=== PATIENT | female | born 2000 | race Hispanic/Latino ===

== ENCOUNTER 2020-05-24 09:00 | Outpatient (RCR) | payer OTHER, SELFPAY ==
--- NOTE | 2020-05-24 09:00 | BH.COMM ---
Communication Note - Communication with Client Communication Note: Met with pt to completed initial paperwork. No significant changes since pre-admission screeing. Completed [facility] Scre[facility]. Pt reports significant hx of suicidal ideations with thoughts about methods, however last thought occured over a week ago. Denies any active SI, plan, or intent. Protective factors.
--- NOTE | 2020-05-24 09:00 | BH.SGPN.GN ---
Behaviors/Verbalizations/Mental Status: []Client alert and oriented, casually dressed. Eye contact poor. Motor activity appropriate. Speech within normal limits. Affect flat, mood anxious. Thoughts linear, logical, no signs of hallucinations or delusions. Reviewed client?s symptom tracker, no risk or plan for suicide ideation, plan, or intent as of 05/24/20. Client Response/Progress/Benefit: []Client listened to others share and head nodded in agreement with other group members throughout discussion. Appeared to be anxious due to client?s first day of IOP program. Declined to share for session, but appeared to be listening to peers. Client will continue IOP to prevent decompensation, learn and practice healthy coping skills, and decrease anxiety symptoms. Narrative Note: []
--- NOTE | 2020-05-24 10:05 | BH.SGPN.GN ---
Behaviors/Verbalizations/Mental Status: []Client alert and oriented, casually dressed and groomed. Eye contact fair. Motor activity appropriate. Speech within normal limits. Affect constricted, mood dysthymic and anxious. Thoughts linear, logical, no signs of hallucinations or delusions. Client Response/Progress/Benefit: []Client mostly passive participant AEB limited contributions during discussion, however did appear attentively listen to peers. Pt chose to not participate in activity, but appeared to listen to information. Pt's first day in group. Group reported even though change can be scary, change can be positive. Listened as group discussed how change can lead to improved mental health and relationships. Client worked with the group to identify barriers to making change, which included: fear of failure, uncomfortable emotions, and putting others first. Client participated in the activity where they identified and discussed the emotions related to change. Benefited from increased awareness and understanding of emotions, benefits, and barriers related to change. Will continue IOP tx as client can benefit from reducing depressed symptoms, increasing healthy coping skills, and preventing decompensation.
--- NOTE | 2020-05-24 11:05 | BH.SGPN.GN ---
Behaviors/Verbalizations/Mental Status: []Client alert and oriented, neatly dressed and groomed. Eye contact good. Motor activity appropriate. Speech within normal limits. Affect constricted, mood anxious and dysthymic. Thoughts linear, logical, no signs of hallucinations or delusions. Client Response/Progress/Benefit: []Client responded well to session AEB taking notes and listening attentively to others. Client listened during psychoeducation on the change process and different emotions in each stage of change. Client also contributed during the activity. Client identified a change client would like to make to improve mental health which was to ?reach out to one friend.? Client declined to share with the group which stage she was in, but she appeared to be engaged during group discussion on using a decisional balance tool to promote change. Appeared to benefit from identifying what stage of change client is in and creating a small goal. First day of IOP tx. Will continue IOP tx to prevent decompensation, improve mood stability, and learn healthy coping skills. Narrative Note: []
--- NOTE | 2020-05-29 12:35 | PCM.BH.PSYEV ---
Psychiatric Evaluation - Initial Evaluation Initial Evaluation: History of Present Illness: [] The patient is a 19-year-old single female with a history of depression and social anxiety disorder who is referred by her psychiatric nurse practitioner due to increased depression and fleeting suicidal ideation for the past 1 to 2 months which has increased in severity in recent weeks. 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 She currently lives with her parents and her 18-year-old sister. Patient was suicidal in the past few weeks and admitted to writing a goodbye letter and researching methods of suicide. She admits that she had fleeting suicidal ideation but today says that she has not had any suicidal ideation whatsoever since 2 weeks ago. She has not had passive thoughts since 2 weeks ago either. She also states that she has had no urges to engage in self-harm by cutting since 2 weeks ago. She has been cutting off-and-on since age 14 and the most recent episode of cutting according to the patient was in December 2019. Stitches were required for her cutting in December 2019 but she was not admitted to the hospital and was not suicidal. She denies any self-harm since then. The patient is able to function at work but only can concentrate for short periods of time. For primary support she has some close friends. Her her biggest stress right now she states is financial. She is reluctant to discuss the fact that she enjoys riding horses and has ridden since she was 5 years old but has recently been told she cannot go back and ride her horse at her current horse barn until she gets treatment. The patient states that her racehorse trainer told her this she thinks just because they watched her struggle with depression and anxiety in the past few years really. The patient denies that any incident happened that triggered this situation where she is unable to ride until she gets treatment. The patient states that she will be able to go back on July 11 to ride horses again with her same racehorse trainer and she has been updating her racehorse trainer on her treatment. She endorses also using caffeine when she is at work at [employer] she'll have up to 4 shots of espresso daily but has no caffeine use when she is not working. She endorses feeling very down and sad and crying. She has endorses feeling hopeless and worthless and isolating. 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 Her appetite is normal and she been sleeping 6 to 9 h a night. Her energy level is low during the day and she denies feeling any guilt. She has no access to guns or any other weapons. She denies active suicidal or homicidal ideation. She denies hallucinations, delusions or symptoms of jayla ever. The patient is a worrier by nature and has always worried but she feels that her anxiety is not much worse now than it usually is. She had 1 panic attack about 4 years ago and none since. She denies OCD, eating disorders, trauma and and PTSD. Denies head trauma and seizure. The patient states that she was recently diagnosed by her therapist of 1 month with borderline personality disorder. Current Psychiatric Medications: [] Lexapro 10 mg p.o. daily (for 10 days only). Past Psychiatric History: [] Patient has no psych admissions. No suicide attempts. She currently has a nurse practitioner and a counselor who she was seeing weekly. Her therapist diagnosed her with borderline personality disorder about 2 to 3 weeks ago. She first took medications for depression and anxiety at age 16. She was first depressed at age 14. She began cutting at age 14 and has been cutting off and on for 5 years. She uses a razor blade and cuts her self on her thighs. She did need stitches for her cutting that she did in December 2019. She was not admitted at that time and was not suicidal. Past medications include Zoloft which helped, Prozac which made her more suicidal. First counseling was at age 15 and she did not find it helpful. Substance Use History: [] Non-smoker. No alcohol use. No drug use and no marijuana use. Allergies: [] No known allergies Medications: [] Lisinopril for polycystic kidney disease. Vitamin D and a few other vitamins and an allergy pill as needed Past Medical History: [] Polycystic kidney disease, scoliosis, low iron. She has not had any surgeries. She is a 0 para 0 female who has regular menstrual periods and has not been sexually active ever. Family Psychiatric History: [] Mother is 49 years old and father is 52 years old and they're both fairly healthy. She has a maternal aunts and a maternal grandmother with depression. She has a maternal grandfather who is an alcoholic and a paternal grandmother who had a history of drug abuse. No completed suicides in the family. Personal/Social History: [] She was born and raised in [place]. She describes her childhood as normal. She says her parents are both loving and she denies any verbal, physical or sexual abuse ever. She has 1 sister 2 years younger than her and they get along but are not close. School was stressful for her and she had separation anxiety for preschool and kindergarten. She got good grades in school and had friends in school. She graduated high school but no college because she didn't want to go to college. 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 Her longest job she held for 18 months. She describes her self as heterosexual but has had no serious boyfriends. No current romantic interest. Legal History: [] No arrests. No DUIs. 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 Review of Systems: [] Negative except as noted in present illness. Vital Signs: [] Will be reviewed in nurses notes. Mental Status Examination: [] Patient is a 19-year-old female who is seen by telehealth and appears normal for stated age and is casually dressed and groomed with good hygiene. She is wearing glasses. She has no psychomotor agitation or retardation. Eye contact is good and speech is normal rate and rhythm and fluent with no pressure. Mood is depressed. Affect is constricted. Thought process is goal-directed and organized. Thought content: There is no evidence of current suicidal ideation, thoughts of self harm, or passive thoughts. 2 weeks ago the patient admits that she had fleeting suicidal ideation with a plan for cutting. She also had passive thoughts of 2 weeks ago but none now. There is no evidence of hallucinations or delusions. Reality testing is intact. Impulsivity is high. Judgment is intact but limited. Insight is limited. Diagnoses: [] [place] I: [] Major depressive disorder, recurrent, severe without psychosis; generalized anxiety disorder [place] II: [] Cluster B traits [place] III: [] Polycystic kidney disease, scoliosis [place] IV: [] Financial and primary support issues Plan: [] The patient will start the IOP program at [facility] in behavioral health as the structure, support, education, individual and group therapy will hopefully prevent worsening of the patient's symptoms which might require hospitalization. The risk, options, possible complications and side effects of medications were discussed with the patient and she understands and accepts these. She felt safe during the interview and if it anytime she does not feel safe she agrees to let us know or go to the emergency room. The patient will continue to follow-up with her outpatient psychiatric and medical providers. No medication changes were made as she has only been on the Lexapro for 10 days now.
--- NOTE | 2020-05-29 12:49 | BH.DR.ITP ---
Initial Treatment Plan - Patient Information Visit Information: ADMISSION DATE: EXPECTED LOS: 4-6 weeks - Problems/Symptoms Problem #1:: Depression Symptom:: Sadness, crying, hopelessness, worthlessness, isolation, self-harm by cutting, history of fleeting suicidal ideation and passive thoughts by history. Problem #2:: Anxiety Symptom:: Worry, rumination
--- NOTE | 2020-05-31 09:00 | BH.SGPN.GN ---
This psychotherapy group was provided via telehealth using two-way, real-time interactive telecommunication technology between the patients and the provider. The interactive telecommunication technology included audio and video. The patient was offered telemedicine as an option for care delivery during the COVID-19 pandemic and consented to this option. Patient location: [place] Provider located at [facility] Behaviors/Verbalizations/Mental Status: []Client alert and oriented, casually dressed. Eye contact poo. Motor activity appropriate. Speech within normal limits. Affect flat, mood anxious. Thoughts linear, logical, no signs of hallucinations or delusions. Reviewed client?s symptom tracker, no risk or plan for suicide ideation as of 05/31/20. Client Response/Progress/Benefit: []Client appeared distracted as client was watching television rather than listening to group discussion. Client declined to share during her check-in. Progress limited as client is very anxious and has not yet opened up in group as client is new to the program. Will continue IOP to decrease anxiety, promote the use of healthy coping skills, and prevent decompensation. Narrative Note: []
--- NOTE | 2020-05-31 10:05 | BH.SGPN.GN ---
Behaviors/Verbalizations/Mental Status: [] Eye contact is good. Motor activity is appropriate. Appearance is casual. Speech is Appropriate. Mood is depressed. Affect is flat. Thoughts are linear and logical. No evidence of psychosis. Client Response/Progress/Benefit: [] Pt participated when prompted and completed group worksheet. Attentive. Group worked together to define anger and discussed the ways anger can impact one internally and externally. Pt identified being anxious, scared, and not feeling heard as being internal events or feelings that can lead to anger. Pt also identified external ways that he commonly expresses his anger which includes; shutting down, isolation, getting quiet, and cussing. Benefited from group by increasing understanding of the impact of anger on mental health. Will continue in IOP to maintain safety, increase coping skills, and prevent decompensation. Narrative Note: [] This psychotherapy group was provided via telehealth using two-way, real-time interactive telecommunication technology between the patients and the provider.?The interactive telecommunication technology included audio and video.? ?The patient was offered telemedicine as an option for care delivery during the COVID-19 pandemic and consented to this option. ?Patient location: [place] ?Provider located at [facility]
--- NOTE | 2020-05-31 11:00 | BH.SGPN.GN ---
This psychotherapy group was provided via telehealth using two-way, real-time interactive telecommunication technology between the patients and the provider.?The interactive telecommunication technology included audio and video.? ?The patient was offered telemedicine as an option for care delivery during the COVID-19 pandemic and consented to this option. ?Patient location: [place] ?Provider located at [facility] Behaviors/Verbalizations/Mental Status: []Client alert and oriented, neatly dressed and groomed. Eye contact fair-appears distracted by a TV. Motor activity appropriate. Speech within normal limits. Affect constricted, mood dysthymic. Thoughts linear, logical, no signs of hallucinations or delusions. Client Response/Progress/Benefit: []Pt was engaged throughout AEB contributing to group discussion and self-reflection. Pt contributed as the group provided examples of physical warning signs for anger and identified personal warning signs. These included: numb, dizziness, hot, shaking, and restlessness. Pt contributed as group brainstormed healthy coping skills for better managing anger which included: music, walking/exercise, meditation, reflecting on consequences, and grounding. Pt appeared to benefit from identifying different techniques to manage anger as well as gaining awareness of potential consequences of unmanaged anger. Pt selected using exercising and taking walks as the coping skill pt would like to try to regulate anger. Progress noted in pt?s willingness to share in group. Will continue IOP tx to prevent decompensation, learn healthy coping skills, and increase mood stability. Narrative Note: []
--- NOTE | 2020-05-31 12:39 | BH.COMM ---
Communication Note - Communication with Client Communication Note: Therapist attempted to reach out to client for an individual session via zoom, but was unable to reach her. Therapist left a voicemail and will meet with client next week for an individual session.
--- NOTE | 2020-06-05 08:57 | BH.SGPN.GN ---
Addendum entered and electronically signed by Alexa Lindquist LSW 06/06/20 14:08: This psychotherapy group was provided via telehealth using two-way, real-time interactive telecommunication technology between the patients and the provider.?The interactive telecommunication technology included audio and video.? ?The patient was offered telemedicine as an option for care delivery during the COVID-19 pandemic and consented to this option. ?Patient location: [place] ?Provider located at [facility] Original Note: Behaviors/Verbalizations/Mental Status: [] Eye contact is poor. Alert and oriented. Motor activity unable to determine as client often has her camera off. Appearance is casual. grooming is appropriate. Client declined to speak throughout. Mood is depressed . Affect is constricted. Thoughts are linear and logical. No evidence of psychosis or hallucinations. Client Response/Progress/Benefit: [] Pt struggled to engage in session AEB not remaining on screen throughout and declining to provide input to group. Pt has struggled on several occasions with engagement and has been encouraged to challenge herself to participate. Will continue to encourage client and review skills for managing mental health sx in order to do so. Recommended continued IOP tx to improve mental health sx management, reduce anxiety, and prevent decompensation. Narrative Note: []
--- NOTE | 2020-06-05 11:10 | BH.SGPN.GN ---
Behaviors/Verbalizations/Mental Status: []Client alert and oriented, casual dress, hygiene tended to. Eye contact fair. Motor activity appropriate. Speech within normal limits. Affect constricted. Mood anxious. Thoughts linear, logical, no signs of hallucinations or delusions. Client Response/Progress/Benefit: []Client was a passive participant AEB client only providing input during small group work, appeared to listen attentively to peers and completed worksheet. Client attentive during psychoeducation and additional discussion on cognitive distortions. Client appeared to listen to discussion on how to reframe distorted thoughts into more realistic, rational statements. Client chose to now share her distorted thought or reframe with the group. Client's progress could be hindered by her continued lack of engagement in group therapy sessions. Client seemed to benefit from practicing identifying and reframing distorted thoughts. client is to continue IOP to increase healthy coping, improve daily functioning and prevent decompensation. Narrative Note: []
--- NOTE | 2020-06-07 10:28 | BH.PSA_ITS ---
Source of Information - Presenting Problems/Circumstances Problems, Referral Source, Mental Status, Client: Client is a 19-year-old female with a hx of MDD, Social Anxiety, and BPD. No hx of psychiatric admissions. Referred to [facility] by her outpatient cattle shipper due to worsening depression and suicide ideations. Client reports decompensation for the past four weeks. Reports that suicidal ideations increased in intensity, frequency, and duration. Denies active suicide ideation, plan, or intent. No hx of suicide attempts and suicide ideations are ?mostly? passive, however, occur daily. Endorses decreased appetite, low energy, hopelessness, worthlessness, isolation, anhedonia, and avoidant behaviors. States ?I stay in my room and do nothing all day.? When not working she spends time isolated. Guarded regarding triggers. Reports that she ?was asked? not to return to her hobby of horse riding until she ?gets this work ed out in therapy.? Would not elaborate except to say horses and ?the barn? are important to her. Denies HI or psychosis. Denies substance abuse. Family hx of depression. Linked with psychiatry and weekly counseling. Med. complainant. Due to limited benefit from traditional outpatient, fleeing SI, and mental health impacts social functioning recommended [facility] level of care. Psychiatric Presentation - Psych Issues & Need for Admission Psychiatric Issues:: Major depressive disorder, recurrent, severe without psychosis; generalized anxiety disorder Past Psychiatric History - Treatment Hx Treatment History: Client has no psych admissions. No suicide attempts. She currently has a nurse practitioner and a counselor who she was seeing weekly. Her therapist diagnosed her with borderline personality disorder about 2 to 3 weeks ago. She first took medications for depression and anxiety at age 16. She was first depressed at age 14. She began cutting at age 14 and has been cutting off and on for 5 years. She uses a razor blade and cuts herself on her thighs. She did need stitches for cutting that she did in December 2019. She was not admitted at that time and was not suicidal. Past medications include Zoloft which helped, Prozac which made her more suicidal. First counseling was at age 15 and she did not find it helpful. Current providers for mental health treatment (counselor, psychiatrist, manager case, etc.): Client currently sees Tiffani Ibrahim for psychiatry from [place] [id number]. Outpatient counselor is Kezia from [facility]. Development & Family of Origin - Childhood Significant Childhood Events: Client was born and raised in [place] [place]. She described her childhood as normal. Denies any verbal, physical or sexual abuse ever. She has 1 sister 2 years younger than her and they get along but are not close. School was stressful for her and she had separation anxiety for preschool and kindergarten. - Family Who currently lives in your home?: Client lives at home with her mother, father, and 18 year old sister. Describe family composition:: Client reports having a normal childhood and a healthy relationship with her parents and younger sister. Did not report any stressors within her family. Client is has never been , and not currently in a romantic relationship. Client does not have any children. - Family History Family Hx of Psychiatric or AOD Problems: Client has a maternal aunts and a maternal grandmother with depression. She has a maternal grandfather who is an alcoholic and a paternal grandmother who had a history of drug abuse. No completed suicides in the family. Ethnicity - Culture Do you identify yourself with any particular cultural, ethnic background, or community?: No - Sexuality Sexual Orientation: Heterosexual Spirituality - Worship Do you currently identify with any organized oriental orthodox?: None Mental Status - Memory Recent Memory: Fair Remote Memory: Fair - Concentration Concentration: Good - Eye Contact Eye Contact: Good - Speech Speech: Soft - Thought Process Thought Process: Logical Insight: Fair Judgment: Good Behavior: Calm - Appearance Appearance: Appropriate - Mood Mood: Anxious, Depressed - Affect Affect: Constricted Suicide Assessment - Suicidal Ideation Have you ever felt like hurting yourself?: Yes Please explain:: Client has done self-harm by cutting which resulted in recieving stitches in the [facility] on Dec 2019. Client has not cut since then. Reports having suicide ideation but does not have a suicide plan or intent as of 06/06/20. Were you using ETOH/drugs at the time?: No Suicidal Intentional Rating Scale (SIRS): Current suicidal thoughts/No plan/Contracts for safety Physician Notification: If Active suicidal thoughts/Will not contract for safety is checked, contact physician and document in the Physician Notification section below. Violent Behavior/Abuse History - Homicidal Ideation Do you have any homicidal thoughts? If so, explain:: No - Abuse Have you ever been abused?: No - Life Events Describe significant life events: Client did not report any significant life events. - Safety Do you ever feel threatened in your home? If yes, describe:: No Adult Social History - Age 17 to Present Describe your current support system:: Client has her parents, younger sister, and close friends for support. Substance Use - Substance Substance Use Type: None - IV Substance Use Do you have a history of IV use?: N/A Leisure/Social Activities - Interests What do you enjoy or might be interested in learning about?: Client enjoys animals and riding horses as part of outpatient therapy. Client does not know what she wants to do as a career in the future but likes to spend time with f amily and friends. Education & Occupational Histo - Education What is your level of education?: High School Do you have any learning disabilities?: No - Occupation List any current or past employment:: Client currently works at [employer] as a [employer] part-time. 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 Service - Service Have you ever been in the ?: No Legal History - Records Have you had any past legal charges?: No Do you have any current legal charges?: No Have you ever been incarcerated? If yes, describe:: No - Court Orders Have you had any past court orders for psychiatric treatment?: No Problem Checklist - Current Problem Areas Problem List: Depressed mood/sad, Anxiety, Inattention, Mood swings/hyper activity, Additional psychosocial stressors - medical issues such as kidney disease, scoliosis, and low iron. Discharge Planning Needs - Anticipated Follow-Up Private Therapist/Psychiatrist:: Tiffani Mo ([facility]-Psychiatrist) Other (to be determined): Outpaitent therapist- Kezia bah [facility] Laundry Pricing Clerk's Assessment - Client's Needs What are the client's feelings about the program?: Client feels hopeful for the program but has anxiety due to large group settings. By doing IOP via telehealth, client reports feeling less anxious and more comfortable. What are the client's goals?: Client was hesistent about future goals but expressed wanting to improve thought challenging. Client will also learn healthy coping skills to help lessen depressive symptoms. What are the client's strengths?: Client is honest and open in individual sessions. Has a great connection with family and close friends for support. Also has previous history of individual therapy and pyschiatry which increases client self-awareness. Diagnoses - Diagnoses Diagnosis #1:: Major depressive disorder, recurrent, severe without psychosis; G AD Interpretive Summary - Interpretive Summary Interpretive Summary: Client is a 19-year-old single female with a history of depression and social anxiety disorder who is referred by her psychiatric nurse practitioner due to increased depression and fleeting suicidal ideation for the past one to two months which has increased in severity in recent weeks. Client has recently reduced working hours at [employer] due to joining [facility] program. Admits to having suicide ideation and plans in the past but has never attempted suicide. Client has been cutting off-and-on since age 14 and the most recent episode of cutting according to the client was in December 2019. Stitches were required for her cutting in December 2019 but client was not admitted to the hospital and was not suicidal. Client denies any self-harm since then. Client has no access to guns or any other weapons. She denies active suicidal or homicidal ideation. For primary support client has friends and family. Client?s computer technology trainer told client she is unable to ride horses until she gets treatment for her depression. Client endorses feeling very down and sad and crying. Endorses feeling hopeless and worthless and isolating. 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 Client's appetite is normal and she been sleeping 6 to 9 h a night. Energy level is low during the day and she denies feeling any guilt. Client endorses also using caffeine when at work at [employer] and will have up to 4 shots of espresso daily but has no caffeine use when she is not working. Client denies active suicidal or homicidal ideation. Denies hallucinations, delusions, or symptoms of jayla ever. The client is a worrier by nature and has always worried, but client feels her anxiety is not much worse now than it usually is. Denies OCD, eating disorders, trauma, and PTSD. Family hx of depression and alcoholism. Denies any substance abuse. Denies head trauma and seizure. The client states that she was recently diagnosed by her therapist of 1 month with borderline personality disorder. Treatment Plan Recommendations - Recommendations Guidelines: Special needs identified to be included in the development of an individualized treatment plan regarding past psychiatric history and treatment, developmental events, family relationships/events/culture, past and/or current educational, occupational, social, and residential experience, and legal status. Recommendations:: Client will start the IOP program at [facility] in behavioral health as the structure, support, education, individual and group therapy will hopefully prevent worsening symptoms which might require hospitalization. She felt safe during the interview and if it anytime she does not feel safe she agrees to let us know or go to the emergency room. Client will continue to follow-up with her outpatient psychiatric and medical providers.
--- NOTE | 2020-06-07 11:13 | BH.SGPN.GN ---
This psychotherapy group was provided via telehealth using two-way, real-time interactive telecommunication technology between the patients and the provider.?The interactive telecommunication technology included audio and video.? ?The patient was offered telemedicine as an option for care delivery during the COVID-19 pandemic and consented to this option. ?Patient location: [place] ?Provider located at [facility] Behaviors/Verbalizations/Mental Status: []Client alert and oriented, neatly dressed and groomed. Eye contact fair/poor- appeared to be watching TV. Motor activity appropriate. Speech within normal limits. Affect constricted, mood dysthymic. Thoughts linear, logical, no signs of hallucinations or delusions. Client Response/Progress/Benefit: []Client receptive of session, engaged throughout AEB client participating to discussion and taking notes. Client completed a worksheet where client identified personal pitfalls that could impact mental health progress. Client?s pitfalls included: not reaching out to support, not eating, and negative self-talk. Attentive and contributing during group brainstorm of strategies to overcome pitfalls. Client declined to share what coping skill she would like to use to overcome personal pitfalls. Benefited from identifying personal pitfalls and strategies to overcome these pitfalls. Progress minimal as client is often quiet and at times disengaged during group. Will continue IOP tx to prevent further decompensation and reduce suicidal ideations. Narrative Note: []
--- NOTE | 2020-06-07 11:16 | BH.MDN_ITS ---
Multi-Disciplinary Note - Note 45-min Individual Time Started:: 10:15 Date: 06/07/20 Purpose of session/treatment goals addressed:: Purpose of session was to establish rapport between client and therapist. Identified goals and symptoms related to mental health. Discussed current progress within IOP groups as well as complete client's psychosocial assessment. Therapist explained CBT therapy. Symptoms/Behavior:: This counseling session was provided via telehealth using two-way, real-time interactive telecommunication technology between the patient and the clinician. The interactive telecommunication technology included audio and video. The patient was offered telehealth as an option for care delivery during the COVID-19 pandemic and consented to this option. Patient location: [place]. Provider located at [facility] Eye Contact:: Good Motor Activity:: Appropriate Appearance:: Casual Speech:: Appropriate, Soft Mood:: Anxious Affect:: Constricted Thoughts:: Linear, Logical Staff Interventions:: Therapist established rapport with client by asking open ended questions during psychosocial assessment to gain awareness of client's history. Engaged client by discussing tx goals like challenging negative thoughts. Provided education related to CBT and how thoughts, emotions, and behaviors impact one another. Explored client's SI and reviewed saftey measures. Client Response:: Client responded well to session, engaged in discussion. Appeared anxious but increased communication throughout discussion. Client was open and vulnerable in discussion during psychosocial assessment and was able to concentrate throughout session. Client expressed her feelings concerning IOP group and shared feeling ?anxious? as to why she does not participate in group discussion. Shared that telehealth helps her feel ?safe? because large groups increase anxiety. Shared she was unable to say if she felt group therapy was benefiting her at this time but agreed to share more next week. Appeared to benefit from learning about how thoughts, feelings, and behaviors impact one another and the relation CBT has on mental health. Risks/Concerns:: Reports no active SI. Chronic SI within her baseline. Reports abilty to remain saftey. Future-oriented. Progress Toward Goals/Plan:: Client made progress by meeting therapist to establish rapport. Client presented open and honest when answering open ended questions. Client discussed a goal for tx as challenge negative thoughts. Identified current symptoms and baseline for suicidal thoughts and ideations. Current symptoms include negative self-talk, fatigue, lack of motivation, isolation, and crying. Client will be re-evaluated weekly to see changes within progress within the group setting. Will continue IOP to challenge negative thoughts, increase the use of healthy coping skills, and prevent decompensation. Time Stopped:: 11:00
--- NOTE | 2020-06-07 11:55 | BH.MTP_ITS ---
[facility] Treatment Plan - Patient Information Program Physician:: Dr. Julisa Nolasco Primary Therapist:: Hanna Mathias - Psychiatric Diagnoses Psychiatric Diagnoses:: Major depressive disorder, recurrent, severe without psychosis; generalized anxiety disorder Diagnosis Code(s):: F 33.2 - Estimated LOS Estimated LOS (in weeks):: 6 Problem/Goal #1 - Problem/Goal #1 Stated Goal:: Client will reduce depression and hopelessness due to Major Depressive Disorder through IOP Services. Description of Barriers: Client has limited benefit to traditional outpatient counseling and fleeting SI that occurs daily. Client?s mental health impacts social functioning which increases anxiety in group settings which could prevent client to participate in groups. Functional Impact: Client is a 19-year-old female with a hx of MDD, Social Anxiety, and BPD. No hx of psychiatric admissions. Referred to IOP by her outpatient psychiatrist due to worsening depression and suicidal ideations. Client reports decompensation for the past four weeks. Reports that suicidal ideations increased in intensity, frequency, and duration. Denies active suicide ideation, plan, or intent. No hx of suicide attempts and suicidal ideations are ?mostly? passive, however, occur daily. Endorses decreased appetite, low energy, hopelessness, worthlessness, isolation, anhedonia, and avoidant behaviors. States ?I sit in my room and do nothing all day.? When not working she spends time isolated. Guarded regarding triggers. Reports that she ?was asked? not to return to her hobby of horse riding until she ?gets this worked out in therapy.? Would not elaborate except to say horses and ?the barn? was important to her. Denies HI or psychosis. Denies substance abuse. Family hx of depression. Linked with psychiatry and weekly counseling. Medication complainant. Due to limited benefit from traditional outpatient, fleeing SI, and mental health impacting social functioning recommended IOP level of care. Goal Relevant Strengths/Supports: Client has support from family, friends, and outpatient care. Client is motivated to improve mental health to continue her hobby of horse back riding. - Objectives Objective #1 Stated Objective: Client will learn and utilize 2-3 healthy coping strategies to manage depressive symptoms as shown by reduced DSM-5 cross-cutting symptom measure score. Interventions: Therapist will help client identify triggers and warning signs of depression and will teach client various coping skills to manage client?s symptoms and give client tangible resources to use to regulate emotions. Discharge Criteria: Discharge criteria will be met when client is able to identidy at least 2 healthy coping skills to decrease depressive symptoms. Target Date: 07/10/20 Review Date: 06/26/20 Objective #2 Stated Objective: Client will identify 3-4 sources or triggers to suicidal ideations and emotional distress to increase insight. Interventions: Therapist will assist client in recognizing triggers for increased self-deprecating and depressive thought patterns. Therapist will help client explore connection between thoughts, feelings, and actions and help client reframe depressive thought patterns. Discharge Criteria: Discharge criteria will be met when client is able to identify at least 2 triggers related to suicidal ideation. Target Date: 07/10/20 Review Date: 06/26/20 Problem/Goal #2 - Problem/Goal #2 Stated Goal:: Stabilize anxiety level while increasing ability to function on a daily basis. Description of Barriers: Client has limited benefit to traditional outpatient counseling and fleeting SI that occurs daily. Client?s mental health impacts social functioning which increases anxiety in group settings which could prevent client to participate in groups. Functional Impact: Client is a 19-year-old female with a hx of MDD, Social Anxiety, and BPD. No hx of psychiatric admissions. Referred to [facility] by her outpatient psychiatrist due to worsening depression and suicidal ideations. Client reports decompensation for the past four weeks. Reports that suicidal ideations increased in intensity, frequency, and duration. Denies active suicide ideation, plan, or intent. No hx of suicide attempts and suicidal ideations are ?mostly? passive, however, occur daily. Endorses decreased appetite, low energy, hopelessness, worthlessness, isolation, anhedonia, and avoidant behaviors. States ?I sit in my room and do nothing all day.? When not working she spends time isolated. Guarded regarding triggers. Reports that she ?was asked? not to return to her hobby of horse riding until she ?gets this worked out in therapy.? Would not elaborate except to say horses and ?the barn? was important to her. Denies HI or psychosis. Denies substance abuse. Family hx of depression. Linked with psychiatry and weekly counseling. Medication complainant. Due to limited benefit from traditional outpatient, fleeing SI, and mental health impacting social functioning recommended [facility] level of care. Goal Relevant Strengths/Supports: Client has support from family, friends, and outpatient care. Client is motivated to improve mental health to continue her hobby of horse riding. - Objectives Objective #1 Stated Objective: Client will identify 2-3 anxiety triggers and 2 calming coping skills to reduce anxiety as shown by decreased DSM-5 cross cutting symptom measure scores. Interventions: Therapist will help client increase awareness of anxiety triggers and educate client on the ways anxiety impacts overall health. Therapist will teach client various calming and mindfulness strategies to promote emotional regulation and reduction of anxiety. Therapist will encourage client to implement healthy coping skills on a regular basis. Discharge Criteria: Discharge criteria will be met when client is able to identify at least 2 calming skills and 2 triggers to anxiety. Target Date: 07/10/20 Review Date: 06/26/20 Objective #2 Stated Objective: Client will identify 2-3 cognitive distortions that lead to rumination and learn 2-3 ways to manage these thoughts to better manage anxiety Interventions: Therapist will provide education on the most common cognitive distortions and teach client the connection between thoughts, emotions, and feelings. Therapist will assist client in identifying, challenging, and replacing dysfunctional thoughts with positive, more realistic thoughts. Discharge Criteria: Discharge criteria will be met when they are able to identify at least 2 cognitive distortions as well as identify at least 2 healthy skills to better manage anxiety Target Date: 07/10/20 Review Date: 06/26/20
== END 2020-06-09 23:59 ==
LOC: BHIOP 09:00
PROVIDERS: Referring Provider Psychiatry & Neurology Psychiatry; Visit Provider Psychiatry & Neurology Psychiatry
DX: F33.2 Major depressive disorder, recurrent severe without psychotic features (principal); F41.1 Generalized anxiety disorder; Q61.3 Polycystic kidney, unspecified; Z79.899 Other long term (current) drug therapy; M41.9 Scoliosis, unspecified; Z81.8 Family history of other mental and behavioral disorders
CPT/HCPCS: H0035; 90834; 90853

== ENCOUNTER 2020-06-10 09:00 | Outpatient (RCR) | payer OTHER, SELFPAY ==
--- NOTE | 2020-06-07 09:00 | BH.SGPN.GN ---
This psychotherapy group was provided via telehealth using two-way, real-time interactive telecommunication technology between the patients and the provider. The interactive telecommunication technology included audio and video. The patient was offered telemedicine as an option for care delivery during the COVID-19 pandemic and consented to this option. Patient location: [place] Provider located at [facility] Behaviors/Verbalizations/Mental Status: []Client alert and oriented, casually dressed. Eye contact good. Motor activity appropriate. Speech within normal limits. Affect congruent, mood euthymic and anxious. Thoughts linear, logical, no signs of hallucinations or delusions. Reviewed client?s symptom tracker, client scored herself within her baseline for suicide ideation and stated no suicide plan or intent as of 06/07/20. Client Response/Progress/Benefit: []Client responded well to session and listened to other group members share in check-in. Client declined to share during her check-in. Progress limited as client continues to decline sharing which impacts personal progress within treatment. Will meet with therapist to discuss future IOP involvement. Client will continue IOP to promote the use of healthy coping skills, prevent decompensation, and decrease depressive symptoms. Narrative Note: []
--- NOTE | 2020-06-10 09:00 | BH.SGPN.GN ---
This psychotherapy group was provided via telehealth using two-way, real-time interactive telecommunication technology between the patients and the provider. The interactive telecommunication technology included audio and video. The patient was offered telemedicine as an option for care delivery during the COVID-19 pandemic and consented to this option. Patient location: [place] Provider located at [facility] Behaviors/Verbalizations/Mental Status: []Client alert and oriented, casually dressed. Eye contact fair. Motor activity appropriate. Speech within normal limits. Affect constricted, mood anxious. Thoughts linear, logical, no signs of hallucinations or delusions. Reviewed client?s symptom tracker, client scored herself above her baseline for suicide ideation, but denied any risk AEB reports of being able to maintain safety today. Client Response/Progress/Benefit: []Client responded well to session, listened to other group members share and participated in self check-in. Client reported feeling ?anxious? this morning. Reported accomplishing her goal of spending time with support as she spent time with two supportive friends over the weekend. Client shared her stressor as saving money. Identified drawing and art as healthy coping skills when client feels depressed or anxious. Progress noted as client completed self check-in. Benefited from group as client used opposite action when sharing her check-in although feeling anxious. Will continue IOP to prevent decompensation, improve daily functioning, and promote the use of healthy coping skills. Narrative Note: []
--- NOTE | 2020-06-10 10:07 | BH.SGPN.GN ---
This psychotherapy group was provided via telehealth using two-way, real-time interactive telecommunication technology between the patients and the provider.?The interactive telecommunication technology included audio and video.? The patient was offered telemedicine as an option for care delivery during the COVID-19 pandemic and consented to this option. Patient location: [place] Provider located at [facility] Behaviors/Verbalizations/Mental Status: []Alert and oriented. Eye contact is fair. Motor activity is appropriate. Appearance is casual. Speech is Appropriate. Mood is depressed. Affect is flat. Thoughts are linear and logical. No evidence of psychosis. Client Response/Progress/Benefit: []Pt was a passive participant AEB pt not making any contributions throughout group session. Appeared to be attentive during psychoeducation. Client listened as group worked together to identify forces that can impact growth and overall mental health. Listened to group identify internal and external forces of life. Pt seemed benefited from increased awareness of the impact positive and negative forces can have on mental health and personal growth. Will continue in IOP to increase healthy coping, challenge negative thoughts and prevent decompensation. Narrative Note: []
--- NOTE | 2020-06-10 11:10 | BH.SGPN.GN ---
This psychotherapy group was provided via telehealth using two-way, real-time interactive telecommunication technology between the patients and the provider.?The interactive telecommunication technology included audio and video.? ?The patient was offered telemedicine as an option for care delivery during the COVID-19 pandemic and consented to this option. ?Patient location: [place] ?Provider located at [facility] Behaviors/Verbalizations/Mental Status: []Eye contact is fair. Alert and oriented. Motor activity is appropriate. Appearance is casual. grooming is appropriate. Speech unable to tell as client declined to provide input throughout. Mood is anxious and depressed. Affect is constricted. Thoughts are linear and logical. No evidence of psychosis or hallucinations. Client Response/Progress/Benefit: [] Pt receptive of session, listened attentively to peers and appeared to be taking notes throughout. Continues to struggle with engaging in session and often declines to provide input to group discussion. Group processed the activity and identified positive and negative forces impacting ability to complete the challenge. Pt was attentive during psychoeducation and appeared to benefit from increased insight on the impact of negative and positive forces on mental wellness. Declined to complete the personal forces identification worksheet or discuss goal with group. Difficulties engaging continue to impede progress and reinforce anxiety sx. Pt recommended continued IOP tx to improve healthy coping skills, reduce mental health sx, and prevent decompensation. Narrative Note: []
--- NOTE | 2020-06-12 09:01 | BH.SGPN.GN ---
Behaviors/Verbalizations/Mental Status: []Eye contact is fair. Alert and oriented. Motor activity is appropriate. Appearance is casual. grooming is appropriate. Speech is Appropriate, minimal input provided. Mood is anxious and depressed. Affect is constricted. Thoughts are linear and logical. No evidence of psychosis or hallucinations. Client Response/Progress/Benefit: [] Pt receptive of attending session though struggling to remain engaged. She was an active listener throughout though declined to provide feedback or share own thoughts and feelings with group. Pt continues to struggle with making progress as a result of limited engagement. Continues to struggle with anxiety and depression. Recommended continued IOP tx to improve skill application and promote engagement, as well as prevent further decompensation. Narrative Note: []
--- NOTE | 2020-06-12 10:15 | BH.SGPN.GN ---
This psychotherapy group was provided via telehealth using two-way, real-time interactive telecommunication technology between the patients and the provider.?The interactive telecommunication technology included audio and video.? The patient was offered telemedicine as an option for care delivery during the COVID-19 pandemic and consented to this option. Patient location: [place] Provider located at [facility] Behaviors/Verbalizations/Mental Status: []Client alert and oriented, casually dressed and appropriately groomed. Eye contact fair. Motor activity appropriate. Speech within normal limits. Affect constricted, mood anxious. Thoughts linear, logical, no signs of hallucinations or delusions. Client Response/Progress/Benefit: []Client mostly passive participant AEB client not providing input during session however did appear to listen attentively to peers and engaged in activity. Client worked with peers on defining goals and brainstorming the benefits of goal setting. Benefits included: having a purpose or sense of direction, feels good, gives intentional focus, helps us make progress, and hold self-accountable. Listened as group discussed the barriers that keep people from either setting goals or following through with goals. Client attentive during psychoeducation on SMART goals. Appeared to benefit from learning the mental health benefits of setting goals using SMART criteria. Client progress could be negatively impacted by client's continued passive participation throughout group sessions. Client will continue IOP to increase the use of healthy coping skills, decrease anxiety, and prevent decompensation. Narrative Note: []
--- NOTE | 2020-06-12 11:10 | BH.SGPN.GN ---
This psychotherapy group was provided via telehealth using two-way, real-time interactive telecommunication technology between the patients and the provider.?The interactive telecommunication technology included audio and video.? ?The patient was offered telemedicine as an option for care delivery during the COVID-19 pandemic and consented to this option. ?Patient location: [place] ?Provider located at [facility] Behaviors/Verbalizations/Mental Status: []Client alert and oriented, neatly dressed and groomed. Eye contact poor. Motor activity appropriate. Speech within normal limits. Affect constricted, mood dysthymic. Thoughts linear, logical, no signs of hallucinations or delusions Client Response/Progress/Benefit: []Client was passive participant AEB client not providing input throughout session however did appear to listen attentively to peers and shared her personal goal. Client was willing to complete the worksheet in which client was challenged to develop a personal SMART goal. Client?s goal is to do her laundry for the next two days. Client reported this will benefit client because it will give client one less stressor to worry about. Benefited from this group by developing a short-term SMART goal related to mental health. Progress continues to be minimal. Will continue IOP tx to prevent decompensation, maintain safety, and increase application of healthy coping skills. Narrative Note: []
--- NOTE | 2020-06-14 09:03 | BH.SGPN.GN ---
This psychotherapy group was provided via telehealth using two-way, real-time interactive telecommunication technology between the patients and the provider.?The interactive telecommunication technology included audio and video.? ?The patient was offered telemedicine as an option for care delivery during the COVID-19 pandemic and consented to this option. ?Patient location: [place] ?Provider located at [facility] Behaviors/Verbalizations/Mental Status: []Client alert and oriented, neatly dressed and groomed. Eye contact good. Motor activity appropriate. Speech within normal limits. Affect incongruent to report of mood, mood euthymic. Thoughts linear, logical, no signs of hallucinations or delusions. Reviewed client?s symptom tracker, no risk for suicidal ideation, plan, or intent as of 06/14/20 Client Response/Progress/Benefit: []Client was mostly quiet, but she did share briefly during her check-in. Client reports feeling content this morning, but unable to identify what was contributing to her positive mood. Client stated her goal while in IOP has been to reduce isolation and spend time with supports. Client shared she made plans for the weekend to spend time with a friend which client is looking forward to. Client did not share any other positives or coping skills. Client's stressor today is that she is trying to save money, but client finds it difficult. Appeared to benefit from connecting with peers and demonstrated progress by deciding to share today. Will continue IOP tx as client continues to struggle with avoidance behaviors, negative thinking, and mood stability. Narrative Note: []
--- NOTE | 2020-06-14 11:10 | BH.SGPN.GN ---
This psychotherapy group was provided via telehealth using two-way, real-time interactive telecommunication technology between the patients and the provider. The interactive telecommunication technology included audio and video. The patient was offered telemedicine as an option for care delivery during the COVID-19 pandemic and consented to this option. Patient location: [place] Provider located at [facility] Behaviors/Verbalizations/Mental Status: []Client alert and oriented, casually dressed and groomed. Eye contact poor to fair. Motor activity appropriate. Speech within normal limits. Affect flat, mood anxious. Thoughts linear, logical, no signs of hallucinations or delusions. Client Response/Progress/Benefit: []Client responded well to session, listened to group within discussion. Listened to discussion of how each resiliency component can help increase personal resiliency. Client did not share within group discussion but provided positive encouragement to group members as they completed group activity. Appeared to benefit from group as client increased awareness of how resiliency can impact treatment. Progress limited as client continues to decline sharing during group discussions. Client?s goal is to continue connecting with support as client will spent time with at least one friend a week. Will continue IOP to increase the use of healthy coping skills, challenge negative thoughts, and prevent decompensation. Narrative Note: []
--- NOTE | 2020-06-14 13:34 | BH.MDN ---
Multi-Disciplinary Note - Note 30-min Individual Time Started:: 10:10 Date: 06/14/20 Purpose of session/treatment goals addressed:: The purpose of this session was to work on goal #1 of client's tx plan. Symptoms/Behavior:: This counseling session was provided via telehealth using two-way, real-time interactive telecommunication technology between the patient and the clinician. The interactive telecommunication technology included audio and video. The patient was offered telehealth as an option for care delivery during the COVID-19 pandemic and consented to this option. Patient location: [place]. Provider located at [facility] Eye Contact:: Good Motor Activity:: Appropriate Appearance:: Casual Speech:: Appropriate Mood:: Euthymic Affect:: Constricted Thoughts:: Linear, Logical, No evidence of hallucinations/delusions noted Staff Interventions:: Provided psychoeducation on the depressive maintenance cycle and discussed strategies to help break personal maintenance cycle. Helped client set behavioral activation goals and gave client tangible resources to review. Client Response:: Client responded well to session, open to meeting with this therapist as client's regular IOP therapist was unable to meet with client this week. Client reports working on her goal of spending time with people over the weekend. Client would also like to work on cleaning and getting more things done at home. Client receptive to psychoeducation on depressive maintenance cycles and was able to provide personal examples. Client's maintenance cycle was composed of negative thoughts such as I'm not worthy or enough which leads to isolation and being alone with her negative thoughts. Client learned how to break this maintenance cycle and she plans to do this by continuing to spend time with people and using positive self-talk. Risks/Concerns:: Client denies any active suicidal ideations, plan, or intent as of 06/14/20. Future oriented. Progress Toward Goals/Plan:: Client reports she is getting more out of IOP this week and reports it to be beneficial. Client continues to be mostly passive in group, but participates when prompted. Client has been working on challenging negative thoughts and reducing isolation. Client continues to endorse low energy, avoidance, negative thinking, and chronic SI. However, client reports these symptoms are beginning to decrease. Will continue IOP tx to promote the use of healthy coping skills, improve daily functioning, and further decrease symptoms. Time Stopped:: 10:29
--- NOTE | 2020-06-17 09:00 | BH.SGPN.GN ---
This psychotherapy group was provided via telehealth using two-way, real-time interactive telecommunication technology between the patients and the provider. The interactive telecommunication technology included audio and video. The patient was offered telemedicine as an option for care delivery during the COVID-19 pandemic and consented to this option. Patient location: [place] Provider located at [facility] Behaviors/Verbalizations/Mental Status: []Client alert and oriented, casually dressed. Eye contact poor to fair. Motor activity appropriate. Speech within normal limits. Affect constricted, mood anxious. Thoughts linear, logical, no signs of hallucinations or delusions. Reviewed client?s symptom tracker, client scored herself below her baseline for sucide thoughts and no risk for suicide plan or intent. Client Response/Progress/Benefit: []Client responded well to session, engaged throughout and participated in group discussion. Client reported feeling ?hopeful? this morning after having a good weekend. Client shared working on her goal of spending time with support by scheduling plans for upcoming week. Reports her stressor as saving money. Progress noted in client?s reduced SI, however, client continues to struggle with setting goals that push client in positive ways. Appeared to benefit from group by listening to peer?s different perspectives and ideas related to treatment. Will continue IOP to promote the use of healthy coping skills, challenge negative thoughts, and increase self-care. Narrative Note: []
--- NOTE | 2020-06-17 11:07 | BH.SGPN.GN ---
This psychotherapy group was provided via telehealth using two-way, real-time interactive telecommunication technology between the patients and the provider.?The interactive telecommunication technology included audio and video.? ?The patient was offered telemedicine as an option for care delivery during the COVID-19 pandemic and consented to this option. ?Patient location: [place] ?Provider located at [facility] Behaviors/Verbalizations/Mental Status: [] Client alert and oriented, casual dress, hygiene tended to. Eye contact fair. Motor activity appropriate. Speech within normal limits. Affect congruent, mood anxious and depressed. Thoughts linear, logical, no signs of hallucinations or delusions. Client Response/Progress/Benefit: [] Client responded well to session, actively listening and taking notes throughout. Group discussed the different categories of coping skills which included distraction, emotional release, grounding, self-love, and thought challenging. Client participated in creating a coping skills ?menu? from the five categories of coping skills. Client's coping skill menu included: keeping track of personal accomplishments, going for walks, spending time with her rats, positive self-talk, and using supports. Progress limited as client continues to struggle with engaging in group via providing input and active skill application. Appeared to benefit from increasing repertoire of healthy coping skills. Will continue tx to continue challenging distorted thoughts, increase self-care practices, and prevent decompensation. Narrative Note: []
--- NOTE | 2020-06-17 13:39 | BH.MDN_ITS ---
Multi-Disciplinary Note - Note 45-min Individual Time Started:: 10:14 Date: 06/17/20 Purpose of session/treatment goals addressed:: Purpose of session was to engage client in check-in session and assess for personal progress within individual and group therapy. Client also was asked about challenging negative thoughts and other healthy coping skills. Symptoms/Behavior:: This counseling session was provided via telehealth using two-way, real-time interactive telecommunication technology between the patient and the clinician. The interactive telecommunication technology included audio and video. The patient was offered telehealth as an option for care delivery during the COVID-19 pandemic and consented to this option. Patient location: [place]. Provider located at [facility] Eye Contact:: Fair Motor Activity:: Appropriate Appearance:: Casual Speech:: Appropriate Mood:: Anxious Affect:: Congruent Thoughts:: Linear, Logical, No evidence of hallucinations/delusions noted Staff Interventions:: Therapist engaged client with open ended questions to assess for progress within group and individual therapy. Therapist reviewed the importance of participation in group and adapting goals within treatment to improve mental health symptoms. Therapist discussed current goals to increase motivation by creating a to-do list daily. Therapist asked questions regarding suicidal thoughts and how to challenge negative thoughts by using gratitude, affirmations, journaling positive thoughts to outweigh the negative thoughts, and talking to support. Discussed the importance of communication with support and obedience trainer to return to her hobby of riding horses. Client Response:: Client responded well to session, engaged within discussion. Client reported benefiting from group therapy as she gains different perspectives from peers, learns better ways to challenge negative thoughts, and learns strategies to set attainable goals. Client agreed with therapist to adapt goals through therapy and continue making goals once accomplishing past goals. Client stated she wants to create the goal of scheduling two things each day to increase motivation, as well as completing one self-care practice daily. Enjoys drawing or coloring to decrease anxiety prior to bed. 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 Therapist and client discussed the importance of communication and advocating for needs. Client stated not being at the horse barn leaves more time to isolate and feel depressed. Client and therapist discussed strategies to challenge negative thoughts when feeling suicidal such as reaching out to support, practicing gratitude and affirmations, having a safety plan, and writing positive thoughts that outweigh negative thoughts. Client appeared to benefit from session as client gained self-awareness and confidence within setting and accomplishing goals. Risks/Concerns:: Client denied any suicidal ideations, plan, or intent on 06/17/20. Remains future-oriented. Progress Toward Goals/Plan:: Progress noted as client continues to open up within discussion and adapt to changing personal goals to improve progress within mental health treatment. Client appeared to be future-oriented and willing to work towards new goals of completing three positive things a day to increase motivation. Client will continue IOP to continue the use of healthy coping skills, challenge negative thoughts, and increase self-care. Time Stopped:: 10:53
--- NOTE | 2020-06-19 09:05 | BH.SGPN.GN ---
This psychotherapy group was provided via telehealth using two-way, real-time interactive telecommunication technology between the patients and the provider.?The interactive telecommunication technology included audio and video.? ?The patient was offered telemedicine as an option for care delivery during the COVID-19 pandemic and consented to this option. ?Patient location: [place] ?Provider located at [facility] Behaviors/Verbalizations/Mental Status: []Client alert and oriented, neatly dressed and groomed. Eye contact fair. Motor activity appropriate. Speech within normal limits. Affect constricted, mood euthymic. Thoughts linear, logical, no signs of hallucinations or delusions. Reviewed client?s symptom tracker, no risk for suicidal ideation, plan, or intent as of 06/19/20 Client Response/Progress/Benefit: []Client responded well to session, attentive and sharing when prompted. Client reports feeling content this morning as client has been having more positive days. Client shared she has been doing laundry, cleaning, and thought challenging. Client stated an additional positive is that client attended a work event last night which was fun for client. Client has been demonstrating progress with being more social, reducing isolation, and being more productive while home. Client's stressor continues to be anxiety about saving money.Appeared to benefit from reflecting on gains. Will continue IOP tx to promote further mood stability and increase the ability to challenge distortions. Narrative Note: []
--- NOTE | 2020-06-19 10:13 | BH.TPR ---
Treatment Plan Review Date of Admission:: 05/29/20 Date of Treatment Plan Review:: 06/19/20 Admitting Diagnoses:: Major depressive disorder, recurrent, severe without psychosis; generalized anxiety disorder Current Diagnoses:: Major depressive disorder, recurrent, severe without psychosis (resolving); generalized anxiety disorder Patient's Response to Treatment:: Client has been mostly passive in group settings- only contributes if elicited by therapist. She is more consistent with homework. Overall scores decreased by 63% since admission. Client feels more capable of catching negative thougths and reframing them. Status of Current Problems and Symptoms: Client has ongoing anxiety about finances and maintence. Presenting problems resolving. Problem #1 Problem Name:: Depression Status of Goals:: Client has completed goals of reducing depression and hopelessness. Objective 1 completed AEB client reported 2-3 healthy coping strategies to manage depressive symptoms. Objective 2 completed AEB client identified 3-4 sources or triggers to suicidal ideations. Recommended to continue to use healthy coping skills. Team Recommendations:: Ongoing work encouraged to increase functioning. Problem #2 Problem Name:: Anxiety Status of Goals:: Objective 1- completed AEB client identified 2-3 anxiety triggers and 2 calming coping skills to reduce anxiety. Objective 2- in progress using thought challenging and other techniques to combat distortions. Team Recommendations:: Discussed with tx team, noted progress and will continue current goals to reinforce mood stability.
--- NOTE | 2020-06-19 10:15 | BH.SGPN.GN ---
Behaviors/Verbalizations/Mental Status: [] Client alert and oriented, casually dressed and groomed. Eye contact fair. Motor activity appropriate. Speech within normal limits, limited input provided. Affect constricted, mood anxious and depressed. Thoughts linear, logical, no signs of hallucinations or delusions. Client Response/Progress/Benefit: []Client attentive, though struggles with being consistently active in group. Listens throughout, though often provides limited to no input which continues to reinforce anxiety. Group worked together to identify barriers to taking action in their lives which included: fear of failure, lack of resources, indecision, anger/resentment, and distorted thoughts. Group identified that ?taking action? is needed in order to make mental health progress. Client identified personal areas they would like to take back control over in life to include indecision and fear of not being ?good enough?. Client shared wanting to focus on addressing indecision first. Benefited from awareness of personal areas client wants to improve and benefits to taking action towards mental wellness. Will continue IOP tx to improve symptom management, further reinforce healthy coping skills, and prevent decompensation. Narrative Note: []
--- NOTE | 2020-06-19 11:20 | BH.SGPN.GN ---
This psychotherapy group was provided via telehealth using two-way, real-time interactive telecommunication technology between the patients and the provider.?The interactive telecommunication technology included audio and video.? The patient was offered telemedicine as an option for care delivery during the COVID-19 pandemic and consented to this option. Patient location: [place] Provider located at [facility] Behaviors/Verbalizations/Mental Status: []Client alert and oriented, casually dressed and appropriately groomed. Eye contact fair. Motor activity appropriate. Speech within normal limits. Affect constricted, mood anxious. Thoughts linear, logical, no signs of hallucinations or delusions. Client Response/Progress/Benefit: []Pt mostly passive participant AEB pt providing limited input during session, listened attentively to others and completed worksheet. Pt listened as group identified the mental health benefits of taking small actionable steps towards addressing barriers and promoting healthy change in daily life. Pt stated she will work on putting herself first instead of last. Pt reported she will do something for herself at least once per week. Pt reported she is going to ask a friend to help keep pt accountable. Seemed to benefit from creating action plan. Recommend continued IOP tx to continue use of healthy skills and prevent decompensation. Narrative Note: []
--- NOTE | 2020-06-24 09:00 | BH.SGPN.GN ---
This psychotherapy group was provided via telehealth using two-way, real-time interactive telecommunication technology between the patients and the provider. The interactive telecommunication technology included audio and video. The patient was offered telemedicine as an option for care delivery during the COVID-19 pandemic and consented to this option. Patient location: [place] Provider located at [facility] Behaviors/Verbalizations/Mental Status: []Client alert and oriented, casually dressed. Eye contact poor. Motor activity appropriate. Speech within normal limits. Affect flat, mood anxious. Thoughts linear, logical, no signs of hallucinations or delusions. Reviewed client?s symptom tracker, no risk or thoughts of suicide ideation, plan, or intent as of 06/24/20. Client Response/Progress/Benefit: []Client responded well to session, engaged throughout and participated in group discussion. Client reported feeling ?subdued? this morning. Client reported working on her goal of increasing her time spent with support as client spent time with two friends over the weekend. Client shared another goal is to increase decision making. Identified ?showering? as a healthy coping skill. Benefited from session as client was able to relate to peers. Progress noted as client reported accomplishing her personal goal over the weekend. Will continue IOP to challenge negative thoughts, decrease anxiety, and promote the use of healthy coping skills. Narrative Note: []
--- NOTE | 2020-06-24 11:20 | BH.SGPN.GN ---
This psychotherapy group was provided via telehealth using two-way, real-time interactive telecommunication technology between the patients and the provider.?The interactive telecommunication technology included audio and video.? The patient was offered telemedicine as an option for care delivery during the COVID-19 pandemic and consented to this option. Patient location: [place] Provider located at [facility] Behaviors/Verbalizations/Mental Status: []Client alert and oriented, casually dressed and appropriately groomed. Eye contact fair. Motor activity appropriate. Speech within normal limits. Affect congruent, mood euthymic. Thoughts linear, logical, no signs of hallucinations or delusions. Client Response/Progress/Benefit: []Client engaged in session AEB client taking notes and was willing to complete worksheet, provided some input. Attentively listening during psychoeducation on 4 zones of regulation and able to identify feelings and behaviors for each zone. Worked with group to identify coping skills one can use to support self in each zone. Client reported she most often is in the blue zone because feels depressed or low energy. Client reported she recognizes this negatively impacts relationships due to isolating and not putting effort into connecting with others. Benefited from increased education on zones of regulation or stages of alertness for emotions and healthy coping skills to use for each zone. Will continue IOP tx to continue use of healthy coping skills, challenge negative thought patterns, and prevent decompensation. Narrative Note: []
--- NOTE | 2020-06-24 11:28 | BH.MDN_ITS ---
Multi-Disciplinary Note - Note 30-min Individual Time Started:: 10:16 Date: 06/24/20 Purpose of session/treatment goals addressed:: Purpose of session was to discuss IOP progress and upcoming discharge this week via telehealth. Symptoms/Behavior:: Individual. This counseling session was provided via telehealth using two-way, real-time interactive telecommunication technology between the patient and the clinician. The interactive telecommunication technology included audio and video. The patient was offered telehealth as an option for care delivery during the COVID-19 pandemic and consented to this option. Patient location: [place]. Provider located at [facility] Eye Contact:: Fair Motor Activity:: Appropriate Appearance:: Casual Speech:: Appropriate Mood:: Euthymic, Anxious Affect:: Congruent Thoughts:: Linear, Logical, No evidence of hallucinations/delusions noted Staff Interventions:: Therapist engaged client by sharing personal progress from IOP per the DSM-5 scores client completed last week. Therapist discussed strategies client will continue using after discharging from IOP program as well as upcoming appointments. Therapist supported client and provided positive feedback regarding her progress. Client Response:: Client responded well to session AEB positive check-in and engaged with answering questions regarding personal progress and upcoming discharge. Client shared strategies she will continue using in the future after IOP as well as her personal progress throughout time in IOP program. Client shared seeing personal progress as client can identify triggers and when to change scenery, a decrease in isolation, able to challenge negative thoughts, ask others for help, and reframe her suicidal thoughts with positive self-talk. Client discussed upcoming appointments following discharge. Risks/Concerns:: Client denied any suicidal ideation, plan, or intent as of 06/24/20. Remains future-oriented and feels excited and anxious regarding her discharge this week. Progress Toward Goals/Plan:: Progress noted as client was able to recognize personal progress throughout IOP program. Client's DSM scores showed a decrease in depressive symptoms by 73% and a decrease in anxiety symptoms by 61%. Client shared healthy coping skills she used throughout IOP and will continue using in the future. Time Stopped:: 10:36
--- NOTE | 2020-06-24 11:47 | BH.IGGP_ITS ---
Aftercare Plan - Demographics Treatment End Date:: 06/26/20 Psychiatrist:: Julisa Nolasco [facility]/IOP Therapist:: Hanna Mathias - Medications Home Medications: Home Medications Escitalopram Oxalate [Lexapro] 10 mg PO DAILY 05/29/20 - Plan Details Progress/Aftercare Plan Details:: Mavis has made significant progress since starting IOP as shown by reduced symptoms and improved functioning. Sissy overall symptoms were reduced by 63%, depression decreased by 72%, and anxiety decreased by 61%. When Mavis started OP she was experiencing significant depression, negative thinking, and isolation behaviors. Sissy symptoms were impacting her functioning at home, work, and socially. Mavis has not been able to participate in her passion of riding horses due to the severity of her me ntal health symptoms. Now, Mavis spends time with support, goes to work with a better attitude, and can reframe her intrusive thoughts related to suicidal ideation. Mavis has shifted her outlook on life and in therapy as she uses healthy coping skills daily without noticing she is doing it like practicing self-care, opposite action, and asking for help. Mavis reported seeing personal progress as she can recognize when it is needed to change her environment when feeling overwhelmed or depressed. Also reported seeing progress as she no longer isolates in her bedroom when feeling sad, instead she asks for help. Mavis shared a huge positive change as she is better able to change her perspective and negative self-talk when suicidal thoughts increase. She reframes her thoughts with positive self-talk and surrounding herself with positive support. Mavis was hesitant for group therapy and was passive for the most part. Mavis was open and successful in her time in individual sessions, and began to share more within group therapy near discharge. Mavis was always open to therapist?s feedback and challenges to change perspective. She remained future-oriented and reported accomplishing her goals on a weekly basis. Mavis plans to follow up with her psychiatrist this week and has an appointment with her outpatient counselor at the end of June. Strategies for Success:: 1. Challenge negative thoughts! Continue to recognize and catch the thoughts before reframing them. Understand that thoughts are thoughts, not facts! 2. Ask for help. Understand it is crucial to continue asking for help when feeling overwhelmed or sad. Having positive support is a good thing, do not stop using it! 3. Self-care. It is a necessity. Taking a shower, spending time with loved ones, playing with pets, riding horses, laughing, drawing, etc. Self-care looks different to everyone and it is okay to spend time focusing on yourself. 4. Forget Isolation! Remember when isolating yourself becomes a negative thing, rather than a positive. 5. Change of perspective (or scenery)! Changing your environment can have some of the greatest impacts on your mental health when feeling depressed. You are capable of changing your negative self-talk! 6. Remember your feelings are valid. You have accomplished so much and worked for where you are today. - Appointments Appointments/Referrals to Other Services:: 1. Follow up with Tiffani Ibrahim from [place] [address] to continue help with medication management. 2. Follow up with outpatient counselor, Kezia from [facility].
--- NOTE | 2020-06-26 08:58 | BH.SGPN.GN ---
Behaviors/Verbalizations/Mental Status: []Eye contact is good. Alert and oriented. Motor activity is appropriate. Appearance is casual. grooming is appropriate. Speech is Appropriate. Mood is anxious. Affect is congruent. Thoughts are linear and logical. No evidence of psychosis or hallucinations. Client Response/Progress/Benefit: []Pt engaged in session AEB listening to others and willingness to share thoughts and feelings with group. Pt did well to identify personal wins and noted she was feeling ?content? on this date. Shared current wins which included: asking for support from a friend rather than ?wallowing? when feeling down, as well as trying to engage with the family rather than isolate in own room. Noted improved mood as a result. Identified current skills used as: drawing/coloring, opposite action, and asking supports for help. Current stressor includes trying to take small steps towards developing and maintaining a new healthy routine. Recommended continued outpatient counseling following IOP d/c on this date to continue focus on improving coping skill application, promote healthy change behaviors, and prevent decompensation. Narrative Note: []
--- NOTE | 2020-06-26 10:35 | BH.DS ---
Discharge Summary - Demographics Date of Admission:: 05/29/20 Discharge Date: 06/26/20 Presenting Problems at Admission:: Client is a 19-year-old female with a hx of MDD, Social Anxiety, and BPD. No hx of psychiatric admissions. Referred to IOP by her outpatient director of customer acquisition due to worsening depression and suicidal ideations. At admission client reported decompensation for the past four weeks. Reported that suicidal ideations increased in intensity, frequency, and duration. Denied active suicide ideation, plan, or intent. No hx of suicide attempts and suicide ideations are ?mostly? passive, however, occur daily. Endorsed decrease in appetite, low energy, hopelessness, worthlessness, isolation, anhedonia, and avoidant behaviors. Stated ?I stay in my room and do nothing all day.? When not working she spent time isolated. Guarded regarding triggers. Reported that she ?was asked? not to return to her hobby of horse riding until she ?gets this worked out in therapy.? Would not elaborate except to say horses and ?the barn? were important to her. Denied HI or psychosis. Denied substance abuse. At admission client's symptoms were impacting her overall functioning. Discharge Diagnoses:: Major depressive disorder, recurrent, severe without psychosis (resolving); generalized anxiety disorder Reason for Discharge:: Client has met her treatment goals and no longer meets criteria for IOP. Overall symptoms were reduced by 63%. Depression decreased by 71% and anxiety decreased by 62%. - Treatment Progress During Treatment & Response: Client was passive in group settings, but participated when therapists called on her. Client was engaged and interactive during individual sessions with therapist. Client responded well to sessions and benefited from groups as client gained healthy coping skills and made significant progress. Issues Still to be Addressed:: Client was recommended to continue seeing her outpatient counselor to continue challenging thoughts. Client still has passive suicidal thoughts on a weekly basis but does not have any intent or plan. Discharge Recommendations/Instructions:: Client was recommended to follow up with her psychiatrist, Dr. Ibarra, from [place] [id number] later this month as well follow up with outpatient counselor, Tomasa Barrientos. Discharge Handout: Complete Discharge Handout with client on aftercare options and continuity of care.
--- NOTE | 2020-06-26 10:44 | PCM.BH.PN ---
Progress Note Progress Note: History of Present Illness/Interim History: [] The patient is a 20-year-old single female with a history of depression and anxiety who is seen in follow-up at the [facility] health IOP program. I last saw the patient about 4 weeks ago. The patient states that she feels she has really benefited from the IOP program and has learned valuable skills that have helped her to manage her mental health issues and emotions. She feels she is doing well and her mood is overall pretty good. She says her mood is much much better than it was when she started the program. She denies any passive thoughts of , suicidal or homicidal ideation. She denies any thoughts of self-harm in the past few weeks and has not done any self-harm. She has not had any panic attacks and denies feeling hopeless or worthless. She is working and functioning well at work. 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 She is been seeing her therapist here in the IOP program and still will follow up with her outpatient therapist. Sleep is good and concentration is normal. Current Psychiatric Medications: [] Lexapro 10 mg p.o. daily (x5-1/2 weeks now). Mental Status Examination: [] The patient is seen by telehealth and appears to be casually dressed and groomed with good hygiene. Eye contact is good and speech is normal rate and rhythm and fluent with no pressure. Patient is pleasant and cooperative during the interview. She has no psychomotor agitation or retardation. Mood is euthymic. Affect is full and normal. Thought process is goal-directed and organized. Thought content: There is no evidence of passive thoughts of , suicidal or homicidal ideation, hallucinations or delusions, thoughts of self-harm. Concentration is normal. Impulsivity is moderate. Insight is good. Judgment is intact. Diagnoses: [] [place] I: [] Major depressive disorder, recurrent, severe without psychosis (resolving); generalized anxiety disorder [place] II: [] Cluster B traits [place] III: [] Polycystic kidney disease, scoliosis [place] IV:[]] Financial and primary support issues Plan: [] The patient will be discharged from the IOP program in the next few days as the structure, support, education, individual and group therapy seems to have benefited her and her symptoms have mostly resolved. She felt safe during the interview and if it anytime she does not feel safe she will let us know or go to the emergency room. The risks, options, possible complications and side effects of the medication were discussed with the patient and she understands and accepts these. She will continue on her current dose of Lexapro and no medication changes were made. She will continue to follow-up with outpatient and psychiatric providers.
--- NOTE | 2020-06-26 11:03 | BH.SGPN.GN ---
This psychotherapy group was provided via telehealth using two-way, real-time interactive telecommunication technology between the patients and the provider.?The interactive telecommunication technology included audio and video.? ?The patient was offered telemedicine as an option for care delivery during the COVID-19 pandemic and consented to this option. ?Patient location: [place] ?Provider located at [facility] Behaviors/Verbalizations/Mental Status: []Client alert and oriented, casually dressed and groomed. Eye contact fair. Motor activity appropriate. Speech within normal limits. Affect constricted. Mood euthymic. Thoughts linear, logical, no signs of hallucinations or delusions. Client Response/Progress/Benefit: []Client responded well to session as evidenced by client listening attentively to others and providing input throughout session. Client identified her warning signs for crisis and gained further awareness of earliest warning signs. Client used the warning signs: increased sleep, canceling appointments, and lack of motivation to create her crisis plan. Client?s action plan included: getting active, watching funny videos, asking a support person to go to appointments with her, and focusing on accomplishing at least one task a day. Client also recognizes that she can ask outside support to increase accountability. Client appeared to benefit from creating a crisis action plan and increasing self-awareness. Client to discharge from IOP tx today as client has made progress towards tx goals and no longer meets criteria for IOP level of care. Narrative Note: []
== END 2020-06-26 16:15 | disposition home or self-care (01) ==
LOC: BHIOP 09:00
PROVIDERS: Referring Provider Psychiatry & Neurology Psychiatry; Visit Provider Psychiatry & Neurology Psychiatry
DX: F33.2 Major depressive disorder, recurrent severe without psychotic features (principal); F41.1 Generalized anxiety disorder; Q61.3 Polycystic kidney, unspecified; M41.9 Scoliosis, unspecified; Z79.899 Other long term (current) drug therapy
CPT/HCPCS: H0035; 90832; 90834; 90853